=== PATIENT | female | born 1935 | race Caucasian/White ===

== ENCOUNTER → 2023-11-14 09:03 | Outpatient (REF) | payer MEDICARE, SELFPAY | LOC: HWRCS 09:03 | PROVIDERS: ATTENDING PHYSICIAN Family Medicine | DX: R01.1 Cardiac murmur, unspecified (principal); M79.89 Other specified soft tissue disorders | CPT/HCPCS: 93306 ==

== ENCOUNTER 2023-12-16 01:33 | Emergency (ER) | payer MEDICARE, SELFPAY ==
[2023-12-16] VITALS (8 sets, daily range): BP systolic 164–242; BP diastolic 75–140; BMI 24.3
[2023-12-16 02:06] LABS: % Basophils 0.5 % (0-2); % Eosinophils 1.6 % (0-6); % Immature Granulocytes 0.5 % (0-0.5); % Monocytes 7.7 % (1.7-9.3); % Neutrophils 72.7 % (42.2-75.2); Absolute Eosinophils 0.1 10^3/uL (0-0.7); Absolute Lymphocytes 1.3 10^3/uL (1.2-3.4); Absolute Monocytes 0.6 10^3/uL (0.1-0.6); Absolute Neutrophils 5.6 10^3/uL (1.4-6.5); Hematocrit 33.4 % (37.0-47.0); Hemoglobin 11.7 g/dL (12.0-16.0); Mean Corpuscular Hgb 30.3 pg (27.0-31.0); Mean Corpuscular Volume 86.5 fL (81.0-99.0); Mean Platelet Volume 9.6 fL (7.4-10.4); Nucleated Red Blood Cells % 0 %; Platelet Count 251 10^3/uL (130-400); Red Blood Cell Count 3.86 10^6/uL (4.20-5.40); Red Cell Dist. Width 14.3 % (11.5-14.5); White Blood Cell Count 7.7 10^3/uL (4.8-10.8)
[2023-12-16 02:24] LABS: ALT (SGPT) 26 U/L (0-35); AST (SGOT) 29 U/L (14-36); Alkaline Phosphatase 99 U/L (38-126); Blood Urea Nitrogen 20 mg/dl (7-17); Calcium 9.6 mg/dl (8.4-10.2); Carbon Dioxide 24 mmol/L (22-30); Chloride 96 mmol/L (98-107); Glucose 139 mg/dl (70-99); Potassium 4.1 mmol/L (3.5-5.1); Sodium 129 mmol/L (135-145); Total Bilirubin 0.5 mg/dl (0.2-1.3); eGFR > 60.00
--- NOTE | 2023-12-16 06:27 | ED.GENMED ---
History of Present Illness
General
Chief Complaint: Blood Pressure Problem
Time Seen by Provider: 12/16/23 06:24
Travel History
Have you had any contact with someone who has COVID-19?: No
Do you have any symptoms of coronavirus? Fever > 100 degrees, chills, cough, shortness of breath, sore throat, loss of taste or smell, muscle aches, or headache?: No
History of Present Illness
History of Present Illness:
HPI: Over the last several days the patient been dizzy. The dizziness has improved. She did fall a few days ago. She never had chest pain. She states she recently was a Dr. Culp's office and made some adjustments to her medication regarding
lower extremity edema which is improved. Blood pressure at home was very high and she came in here for further evaluation. She currently takes olmesartan 40 mg daily and amlodipine 10 mg daily�each 11 AM.
EXAM:
GENERAL: Well appearing in no distress, she is hypertensive
HEENT: Moist oral mucosa
CARDIOVASCULAR: No murmurs, normal heart rate, regular rhythm, No chest wall tenderness
PULMONARY: No respiratory distress, breath sounds are clear and equal
ABDOMEN: Soft with no peritoneal signs, no tenderness
NEUROLOGIC: Excellent strength all extremities, no coordination deficits, normal finger-nose bilaterally
PSYCHIATRIC: Appropriate mental status, fair insight and judgement, there does appear to be some mild cognitive deficits as she gets somewhat confused with following some commands
EXTREMITIES: Nontender, no edema, moves all extremities equally
SKIN: No rash, no lesions
TIME OF INITIAL ENCOUNTER: 6:30 AM
NUMBER AND COMPLEXITY OF PROBLEMS ADDRESSED AT THE ENCOUNTER
� Chronic conditions affecting care: High blood pressure
� Acute Exacerbation and/or Progression of Chronic Illness: This is an acute exacerbation of chronic problem
� Differential Diagnosis includes: Hypertensive urgency, lab abnormality, BPPV, CVA less likely
AMOUNT AND/OR COMPLEXITY OF DATA TO BE REVIEWED AND ANALYZED
� I performed an independent evaluation of and my interpretation is:
EKG: Sinus 88, normal axis, no acute ST abnormality, poor R wave progression, with no old EKG to compare
CT: CT brain shows no acute abnormality
X-rays:
Laboratory Studies: CBC relatively unremarkable with hemoglobin slightly low 11.7, sodium slightly low at 129, otherwise chemistries unremarkable including normal renal function
Other:
� Review of other/old records: I reviewed echo from 1 month ago that showed EF of 55 to 60%
� Clinical information was obtained by an independent historian: I spoke to the son at bedside
� Prescriptions/Medications Considered but not given:
� Further testing considered but not performed:
RISK OF COMPLICATIONS AND/OR MORBIDITY OR MORTALITY OF PATIENT MANAGEMENT
� Social determinants of health affecting care: Lives at home
� Discussion with other providers:
� Escalation of care including admission/observation vs risk of discharge considered: The patient's blood pressure upon arrival at about 1:30 AM was 240s/140s. Currently it is 218/77. Her earlier dizziness has improved. Will
give a dose of hydralazine. After hydralazine was given by IV, the patient's blood pressure was down to 160s. I have also ordered her normal morning blood pressure medication. She appears eager to go home. She does have some intermittent
dizziness and nausea�Zofran was given. I offered to keep patient in the hospital however the patient still preferred to go home.
Phy Exam
Physical Exam
Physical Exam:
See HPI
Course
Orders/Labs/Results
Orders:
Orders
12/16/23 01:42
Electrocardiogram (*1) Urgent
Reason for Study: Hypertension, Benign
EKG- Treatment ONCE
12/16/23 01:56
CMP [Comprehensive Metabolic Panel] Urgent
Complete Blood Count/With Diff Urgent
12/16/23 06:47
HydrALAZINE [Apresoline] 10 mg IV NOW STA
12/16/23 06:50
CT Head W/o Iv Contrast Urgent
Comment:
Reason For Exam: dizziness severe HTN
12/16/23 07:48
Amlodipine [Norvasc] 10 mg PO NOW STA
12/16/23 08:09
Ondansetron Injectable [Zofran] 4 mg IV NOW STA
12/16/23 08:29
Olmesartan Medoxomil [Benicar] 40 mg PO NOW STA
Abnormal Lab Results
12/16/23
01:56
RBC 3.86 L 10^6/uL
(4.20-5.40)
Hgb 11.7 L g/dL
(12.0-16.0)
Hct 33.4 L %
(37.0-47.0)
Lymphocytes % 17.0 L %
(20.5-51.1)
Sodium 129 L mmol/L
(135-145)
Chloride 96 L mmol/L
(98-107)
BUN 20 H mg/dl
(7-17)
Glucose 139 H mg/dl
(70-99)
12/16/23 01:56
12/16/23 01:56
Vital Signs
Blood pressure: 167/80
Initial and Last Documented VS:
Initial Vital Signs
Temp Pulse Resp BP Pulse Ox
97.8 F 110 24 242/140 98
12/16/23 01:36 12/16/23 01:36 12/16/23 01:36 12/16/23 01:36 12/16/23 01:36
Last Documented Vital Signs
Temp Pulse Resp BP Pulse Ox
97.8 F 69 13 173/83 98
12/16/23 01:36 12/16/23 08:45 12/16/23 08:45 12/16/23 08:40 12/16/23 07:00
*Critical Care Note
Total Time (30-74mins, 75-104mins- exclusive of procedures): Not Applicable
ED Attending Note
-
Portions of this chart may have been created with voice recognition software.� Occasional wrong word or��sound alike� substitutions may have occurred due to the inherent limitations of voice recognition software.
Discharge Plan
Departure
Patient Disposition: Home (Routine Discharge)
Date of Disposition: 12/16/23
Time of Disposition: 08:30
Patient with high blood pressure during this ER visit?: Yes
Discharge Problem:
Dizziness
Instructions: Dizziness, BLOOD PRESSURE
Prescriptions:
New
ondansetron HCl 4 mg tablet
4 mg PO Q8H PRN (Reason: nausea and vomiting) Qty: 10 0RF
hydralazine 10 mg tablet
10 mg PO TID Qty: 90 0RF
Referrals:
Jacek Culp, DO [Family Provider] -
Activity Restrictions/Additional Instructions:
Since you already compliant with taking your olmesartan 40 mg daily and amlodipine 10 mg daily, and your blood pressure was as high as 242/140 here, we gave a dose of IV hydralazine which improved blood pressure down to 167/80. I have given you
prescription for oral hydralazine�this is a low-dose. I do recommend that you continue to take your blood pressure readings. If your blood pressures are below 140 for the top number, I recommend to not take the hydralazine. Follow-up with
Suni. I also sent a prescription to your pharmacy for nausea medicine. Return here if worse.
Interventions
Interventions:
*Risk Screen - Suicide Last Done: 12/16/23 01:36
*Neglect/Abuse Screening Last Done: 12/16/23 01:36
ED- Fall Risk Assessment Last Done: 12/16/23 07:46
ED- Cardiac Assessment Last Done: 12/16/23 07:46
ED- Neurological Assessment Last Done: 12/16/23 07:46
ED- Pulmonary Assessment Last Done: 12/16/23 07:46
Discharge Date and Time
Print Language: WOLOF
[2023-12-16] MEDS: APRESOLINE 10 MG IV (07:45)
[2023-12-16] MEDS: ZOFRAN 4 MG IV (08:20)
[2023-12-16] MEDS: BENICAR 40 MG PO (08:50)
[2023-12-16] MEDS: NORVASC 10 MG PO (08:55)
== END 2023-12-16 09:50 | disposition home or self-care (01) ==
LOC: EMR 01:33
PROVIDERS: Emergency Medicine; EMERGENCY PHYSICIAN Emergency Medicine; FAMILY PHYSICIAN Family Medicine
DX: R42 Dizziness and giddiness (principal); R60.0 Localized edema; W19.XXXA Unspecified fall, initial encounter; Z79.899 Other long term (current) drug therapy
CPT/HCPCS: 99284; 96374; 96375; 70450; 80053; 85025; 93005

== ENCOUNTER → 2023-12-25 15:12 | Outpatient (REF) | payer MEDICARE, SELFPAY | LOC: MRI 3T 15:12 | PROVIDERS: ATTENDING PHYSICIAN Family Medicine | DX: R42 Dizziness and giddiness (principal); R41.3 Other amnesia | CPT/HCPCS: 70551 ==

== ENCOUNTER → 2024-01-20 07:47 | Outpatient (REF) | payer MEDICARE, SELFPAY ==
--- NOTE | 2024-01-20 10:01 | EEG.RPT ---
Electroencephalogram Report
Recording
Date of EE01/20/24
Type of EEG: Routine
Length of EEG recordin minutes
Done with Video Recording: Yes
Patient Status: Outpatient
Recording Conditions: Awake and Drowsy
Hyperventilation Performed: No
Photic Stimulation Performed: Yes
Report
LESS THAN 1 HOUR EEG REPORT
LESS THAN 1 HOUR EEG INTERPRETATION:
Likely unremarkable EEG for age
CLINICAL CORRELATION:
Although normative values not been established for a person of this advanced age, the patient�s symmetry of the background suggests that this study was unremarkable.
A normal EEG does not rule out a diagnosis of epilepsy. If clinical suspicion for seizure persists, a prolonged recording may be warranted.
Clinical correlation is advised.
METHODS:
A 21 channel digitized electroencephalogram (EEG) was performed using the 10/20 international system of electrode placement and one-lead of ECG recorded. The opinions.h quantitative analysis system was utilized.
ELECTROENCEPHALOGRAPHER IMPRESSION(S):
Quality of study
Good
Background
There was an unremarkable anterior-posterior voltage gradient of alpha frequency.
With eye opening the background activity changed to a low voltage mixture of frequencies.
There were no significant asymmetries of background activity noted.
Sleep
Drowsiness present
Photic Stimulation
No driving
ECG
Normal sinus rhythm
[2024-01-20 10:17] LABS: Urine Albumin Trace (Neg - Trace); Urine Bilirubin Negative (Negative); Urine Character Clear (Clear); Urine Color Yellow; Urine Glucose Negative (Negative); Urine Ketone Negative (Negative); Urine Leukocyte Negative (Negative); Urine Nitrite Negative (Negative); Urine Occult Blood Negative (Negative); Urine Specific Gravity 1.005 (<1.030); Urine Urobilinogen Negative (Neg - 1+)
[2024-01-20 10:25] LABS: Ammonia < 9 umol/L (9-30)
[2024-01-20 10:26] LABS: Erythrocyte Sed Rate 20 mm/hour (0-20)
[2024-01-20 11:06] LABS: CRP, Highly Sensitive < 0.34 mg/L
[2024-01-20 11:17] LABS: Vitamin D, 25-OH*** 24.7 ng/mL (30-80)
[2024-01-20 11:30] LABS: TSH 3.02 uIU/ml (0.47-4.68)
[2024-01-20 12:13] LABS: Vitamin B12 321 pg/ml (239-931)
== END ==
LOC: EEG 07:47
PROVIDERS: ATTENDING PHYSICIAN Psychiatry & Neurology Neurology; FAMILY PHYSICIAN Family Medicine
DX: R41.82 Altered mental status, unspecified (principal); I10 Essential (primary) hypertension
CPT/HCPCS: 36415; 81003; 82140; 82306; 82607; 82652; 82746; 84425; 84443; 85652; 86141; 86618; 95819

== ENCOUNTER 2024-07-26 13:40 | Emergency (ER) | payer MEDICARE, SELFPAY ==
[2024-07-26] VITALS (8 sets, daily range): BP systolic 176–218; BP diastolic 74–103; BMI 22.9
[2024-07-26 14:04] LABS: % Basophils 0.9 % (0-2); % Eosinophils 0.9 % (0-6); % Immature Granulocytes 0.2 % (0-0.5); % Lymphocytes 26.5 % (20.5-51.1); % Monocytes 8.2 % (1.7-9.3); % Neutrophils 63.3 % (42.2-75.2); Absolute Lymphocytes 1.2 10^3/uL (1.2-3.4); Absolute Monocytes 0.4 10^3/uL (0.1-0.6); Hematocrit 41.7 % (37.0-47.0); Hemoglobin 13.7 g/dL (12.0-16.0); Mean Corp Hgb Conc. 32.9 g/dL (33.0-37.0); Mean Corpuscular Hgb 30.1 pg (27.0-31.0); Mean Corpuscular Volume 91.6 fL (81.0-99.0); Nucleated Red Blood Cells % 0 %; Platelet Count 203 10^3/uL (130-400); Red Blood Cell Count 4.55 10^6/uL (4.20-5.40); Red Cell Dist. Width 13.3 % (11.5-14.5); White Blood Cell Count 4.7 10^3/uL (4.8-10.8)
[2024-07-26 14:16] LABS: ALT (SGPT) 18 U/L (0-35); AST (SGOT) 27 U/L (14-36); Albumin 5.2 g/dl (3.5-5.0); Alkaline Phosphatase 84 U/L (38-126); Blood Urea Nitrogen 30 mg/dl (7-17); Carbon Dioxide 26 mmol/L (22-30); Chloride 100 mmol/L (98-107); Estimated Creatinine Clearance 46 ml/min; Glucose 110 mg/dl (70-99); Potassium 4.4 mmol/L (3.5-5.1); Sodium 141 mmol/L (135-145); Total Bilirubin 0.7 mg/dl (0.2-1.3); Total Protein 8.4 g/dl (6.3-8.2); eGFR > 60.00
[2024-07-26 14:28] LABS: Troponin I < 0.012 ng/ml
--- NOTE | 2024-07-26 16:46 | ED.GENMED ---
History of Present Illness
General
Chief Complaint: Dizziness
Time Seen by Provider: 07/26/24 15:41
History of Present Illness
History of Present Illness:
89-year-old female with history of dementia and hypertension presenting to the emergency department for dizziness. Patient reports that she felt dizzy this morning, however reports that she is unsure how she got here. Patient arrived by medics.
Patient reports that she is generally feeling unwell. She did not eat or drink today, did not take her medications. Dizziness is not worsened with any fast head movement. Denies fever, cough, pain, difficulty breathing. Denies associated
weakness or numbness to her extremities. Denies any abdominal pain. Denies visual changes or headache. Denies additional acute medical complaints
Phy Exam
Physical Exam
Physical Exam:
General: Well-appearing, no clinical signs of dehydration, nontoxic and in no acute distress
HEENT: protecting airway, pupils equal and reactive, extraocular movements intact
Neck: appears supple
CV: Normal heart rate, regular rhythm, no evidence of cyanosis
Resp: No accessory muscle use, no increased work of breathing, lungs clear to auscultation bilaterally
Abd: Soft and non-distended, no tenderness to palpation
Extremities: No deformities, no swelling, no erythema
Neuro: alert, no focal neurologic deficit
: deferred
Rectal: deferred
Psych: Normal affect
Skin: Intact
Course
Orders/Labs/Results
Orders:
Orders
07/26/24 13:46
Electrocardiogram (*1) Urgent
Reason for Study: Hypertension, Benign
EKG- Treatment ONCE
07/26/24 13:55
CMP [Comprehensive Metabolic Panel] Urgent
Complete Blood Count/With Diff Urgent
Troponin I Urgent
07/26/24 15:56
CT Head W/o Iv Contrast Urgent
Comment:
Reason For Exam: dizziness, HTN
0.9% Sodium Chloride 1000 ml [Nss] 1,000 ml IV BOLUS
Labetalol HCl [Trandate] 20 mg IV NOW STA
Meclizine [Antivert] 25 mg PO NOW STA
Abnormal Lab Results
07/26/24
13:55
WBC 4.7 L 10^3/uL
(4.8-10.8)
MCHC 32.9 L g/dL
(33.0-37.0)
BUN 30 H mg/dl
(7-17)
Glucose 110 H mg/dl
(70-99)
Total Protein 8.4 H g/dl
(6.3-8.2)
Albumin 5.2 H g/dl
(3.5-5.0)
07/26/24 13:55
07/26/24 13:55
Vital Signs
Initial and Last Documented VS:
Initial Vital Signs
Temp Pulse Resp BP Pulse Ox
99.1 F 88 18 215/90 96
07/26/24 13:47 07/26/24 13:47 07/26/24 13:47 07/26/24 13:47 07/26/24 13:47
Last Documented Vital Signs
Temp Pulse Resp BP Pulse Ox
99.1 F 69 10 186/75 96
07/26/24 13:47 07/26/24 18:31 07/26/24 18:31 07/26/24 18:31 07/26/24 18:30
MDM/Problems Addressed
MDM/Problems Addressed:
89-year-old female with history of dementia and hypertension presenting to the emergency department for dizziness. Vital signs and arrival significant for hypertension.
On exam, patient is resting comfortably, no acute distress or discomfort. Benign cardiac, pulmonary, neurologic exam. No focal neurologic deficits. Patient is confused about how she got to this hospital, unclear if this is her baseline. She has
markedly hypertensive, possible hypertensive urgency versus emergency, however patient notes that her blood pressure is typically elevated. Possible vertiginous component as etiology of symptoms. Possible dehydration component, has not eaten or
drink anything today. EKG obtained, no arrhythmia, no acute ischemia. Plan for screening laboratory analysis and CT brain in the setting of uncontrolled hypertension and dizziness. Will also try administering meclizine and IV fluids and reassess
for improvement.
16:40 - Patient's son arrived bedside, who notes that this confusion is patient's baseline. He notes that she appears to be acting herself. Her blood pressure is very usually very elevated, she frequently misses her medications. He is trying to
get her home health care. However, patient has been very resistant to help, and expresses that she does not want to stay in the facility.
19:10 -CT brain without acute abnormality. There is mention of enlarged ventricles, possible NPH. In discussion with son, notes that they have entertained undiagnosed past. Blood pressure remains slightly elevated, however this time feel stable
for discharge, patient reports she is feeling better. Encouraged her to to be compliant with her medications. Son notes that he has convinced her to get home health nursing. He will escort her home. Strict return precautions communicated to
patient verbalized understanding
*EKG
Interpreted by ED Provider?: Yes
EKG Intrepretation Date: 07/26/24
EKG Intrepretation Time: 16:49
Interpretation: normal
Comparison EKG: no changes (12/16/23)
Heart Rate: 86
Rate: normal
Rhythm: sinus
Interval: normal interval
QRS Pattern: normal QRS
Ischemia: no ischemia
*Critical Care Note
Total Time (30-74mins, 75-104mins- exclusive of procedures): Not Applicable
ED Attending Note
-
Portions of this chart may have been created with voice recognition software.� Occasional wrong word or��sound alike� substitutions may have occurred due to the inherent limitations of voice recognition software.
Discharge Plan
Departure
Prescriptions:
No Action
ondansetron HCl 4 mg tablet
4 mg PO Q8H PRN (Reason: nausea and vomiting) Qty: 10 0RF
hydralazine 10 mg tablet
10 mg PO TID Qty: 90 0RF
Referrals:
Jacek Culp DO [Family Provider] -
Interventions
Interventions:
*Risk Screen - Suicide Last Done: 07/26/24 13:47
*General Assessment Last Done: 07/26/24 13:47
*Neglect/Abuse Screening Last Done: 07/26/24 13:47
ED- Fall Risk Assessment Last Done: 07/26/24 13:47
*ED COVID-19 Vaccine History Last Done: 07/26/24 13:47
ED- Neurological Assessment Last Done: 07/26/24 13:47
ED Swallowing Screen Last Done: 07/26/24 15:00
Discharge Date and Time
Print Language: LITHUANIAN
[2024-07-26] MEDS: ANTIVERT 25 MG PO (17:14)
[2024-07-26] MEDS: TRANDATE 20 MG IV (17:14)
[2024-07-26] MEDS: NSS 1000 IV (17:14)
== END 2024-07-26 19:42 | disposition home or self-care (01) ==
LOC: EMR 13:40
PROVIDERS: Emergency Medicine; EMERGENCY PHYSICIAN Student in an Organized Health Care Education/Training Program; FAMILY PHYSICIAN Family Medicine
DX: R42 Dizziness and giddiness (principal); I10 Essential (primary) hypertension; F03.90 Unspecified dementia, unspecified severity, without behavioral disturbance, psychotic disturbance, mood disturbance, and anxiety
CPT/HCPCS: 99285; 96374; 96361; 70450; 80053; 84484; 85025; 93005

== ENCOUNTER 2024-08-18 18:45 | Inpatient (IN) | payer MEDICARE, SELFPAY ==
[2024-08-18] VITALS (12 sets, daily range): BP systolic 105–173; BP diastolic 58–82; PULSE 73–95; BMI 22.8; BMI 22.0
--- NOTE | 2024-08-18 15:27 | ED.GENMED ---
History of Present Illness
<Marylou Bonilla PA-C - Last Filed: 08/18/24 19:01>
General
Chief Complaint: Blood Pressure Problem
Source: patient
Exam Limitations: none
Time Seen by Provider: 08/18/24 15:26
Nursing documentation reviewed up to this point in time: agreed with
History of Present Illness
History of Present Illness:
89-year-old female with past medical history of hypertension, dizziness, orthostatic hypotension presents to the emergency department today with concerns of an episode of hypotension at home. She was sent in by her primary care provider and her
home nurse who reports that her pressure at home was 68/40. She had dizziness at this time. She has a history of orthostatic hypotension and dizziness with standing and ambulation. Primary care office also concerned because she has had 20 pound
weight loss over the past few weeks and has not been eating and had decreased appetite. Patient offers no complaints at this time, she has no abdominal pain, no shortness of breath, no chest pain, no nausea, no vomiting.
Review of Systems
<Marylou Bonilla PA-C - Last Filed: 08/18/24 19:01>
Review of Systems
All Other Systems: ROS reviewed and negative except as documented in HPI and ROS
Phy Exam
<Marylou Bonilla PA-C - Last Filed: 08/18/24 19:01>
Physical Exam
Physical Exam:
General: Patient is well appearing and in no acute distress; non-toxic
Skin: Warm and dry, no rashes or lesions
Head: Normocephalic, atraumatic
Eyes: Sclera non-icteric. EOMs intact. PERRLA.
Cardiac: Regular rate and rhythm, no murmurs. Positive orthostatic vital signs
Peripheral Vascular: No lower extremity swelling or edema
Pulm: Normal respiratory effort, no wheezes, rales, rhonchi
Abdomen: No abdominal tenderness to palpation
Neuro: CN II-XII intact, no focal neurologic deficits.
Psychiatric: Appropriate mood and affect.
Course
<Marylou Bonilla PA-C - Last Filed: 08/18/24 19:01>
Orders/Labs/Results
Orders:
Orders
08/18/24 15:28
Electrocardiogram (*1) Urgent
Reason for Study: Vertigo / Dizzy
EKG- Treatment ONCE
08/18/24 15:29
Complete Blood Count/With Diff Urgent
Comprehensive Metabolic Panel Urgent
08/18/24 15:36
0.9% Sodium Chloride 500 ml [Nss] 500 ml IV BOLUS
08/18/24 18:00
Admit/Transfer Patient As Directed
Co-Sign Provider:
Level of Care: Inpatient admission
Assign to:: Telemetry
Physician / Group: Alex Rodriguez
Diagnosis: NUNU, AFTT
Reason for Telemetry: Arrhythmia
Date to Stop Telemetry: 08/21/24
Time to Stop Telemetry: 11:00
Reason for Hospitalization: NUNU, AFTT
Expected length of stay greater than two midnights?: Yes
ELOS- Estimated Length of Stay in days: 3
I certify the patient meets the requirements for IP care: Yes
08/18/24 18:01
PRN Pain Medication Management As Directed
May give lesser potent ordered pain med per pt: Yes
preference::
Protocol:: Medication orders for pain may be administered in a
manner that supports deferring to patient preference
when the pt is:
- Requesting an ordered lesser potent pain medication.
Least to most potent pain medications are defined
as: acetaminophen < NSAID < tramadol < opioids
(morphine, oxycodone, hydromorphone).
- Requesting a lesser dose of the same medication IF
ORDERED.
- Requesting a less intrusive route of administration
if both routes are prescribed by the provider (PO <
IV).
08/18/24 18:04
Code Status As Directed
Resuscitation Status: Full Code
08/21/24 11:00
DC Protocol for Telemetry ONCE
Abnormal Lab Results
08/18/24
15:29
MPV 10.9 H fL
(7.4-10.4)
Abs Immat Gran (auto) 0.1 H 10^3/uL
(0-0.05)
Immature Gran % 1.1 H %
(0-0.5)
Monocytes % 9.9 H %
(1.7-9.3)
Sodium 134 L mmol/L
(135-145)
BUN 58 H mg/dl
(7-17)
Creatinine 2.5 H mg/dL
(0.6-1.0)
Glucose 136 H mg/dl
(70-99)
AST 47 H U/L
(14-36)
08/18/24 15:29
08/18/24 15:29
Vital Signs
Initial and Last Documented VS:
Initial Vital Signs
BP
156/68
08/18/24 15:09
Last Documented Vital Signs
Temp Pulse Resp BP Pulse Ox
98.7 F 67 12 163/71 98
08/18/24 15:12 08/18/24 18:20 08/18/24 16:45 08/18/24 18:42 08/18/24 16:00
Kacylt;Uzair Manuel, - Last Filed: 08/18/24 16:39>
Orders/Labs/Results
Orders:
Orders
08/18/24 15:28
Electrocardiogram (*1) Urgent
Reason for Study: Vertigo / Dizzy
EKG- Treatment ONCE
08/18/24 15:29
Complete Blood Count/With Diff Urgent
Comprehensive Metabolic Panel Urgent
08/18/24 15:36
0.9% Sodium Chloride 500 ml [Nss] 500 ml IV BOLUS
08/18/24 18:00
Admit/Transfer Patient As Directed
Co-Sign Provider:
Level of Care: Inpatient admission
Assign to:: Telemetry
Physician / Group: Alex Rodriguez
Diagnosis: NUNU, AFTT
Reason for Telemetry: Arrhythmia
Date to Stop Telemetry: 08/21/24
Time to Stop Telemetry: 11:00
Reason for Hospitalization: NUNU, AFTT
Expected length of stay greater than two midnights?: Yes
ELOS- Estimated Length of Stay in days: 3
I certify the patient meets the requirements for IP care: Yes
08/18/24 18:01
PRN Pain Medication Management As Directed
May give lesser potent ordered pain med per pt: Yes
preference::
Protocol:: Medication orders for pain may be administered in a
manner that supports deferring to patient preference
when the pt is:
- Requesting an ordered lesser potent pain medication.
Least to most potent pain medications are defined
as: acetaminophen < NSAID < tramadol < opioids
(morphine, oxycodone, hydromorphone).
- Requesting a lesser dose of the same medication IF
ORDERED.
- Requesting a less intrusive route of administration
if both routes are prescribed by the provider (PO <
IV).
08/18/24 18:04
Code Status As Directed
Resuscitation Status: Full Code
08/21/24 11:00
DC Protocol for Telemetry ONCE
Abnormal Lab Results
08/18/24
15:29
MPV 10.9 H fL
(7.4-10.4)
Abs Immat Gran (auto) 0.1 H 10^3/uL
(0-0.05)
Immature Gran % 1.1 H %
(0-0.5)
Monocytes % 9.9 H %
(1.7-9.3)
Sodium 134 L mmol/L
(135-145)
BUN 58 H mg/dl
(7-17)
Creatinine 2.5 H mg/dL
(0.6-1.0)
Glucose 136 H mg/dl
(70-99)
AST 47 H U/L
(14-36)
08/18/24 15:29
08/18/24 15:29
Vital Signs
Initial and Last Documented VS:
Initial Vital Signs
BP
156/68
08/18/24 15:09
Last Documented Vital Signs
Temp Pulse Resp BP Pulse Ox
98.7 F 67 12 163/71 98
08/18/24 15:12 08/18/24 18:20 08/18/24 16:45 08/18/24 18:42 08/18/24 16:00
Kacylt;Marylou Bonilla PA-C - Last Filed: 08/18/24 19:01>
MDM/Problems Addressed
Differential Diagnosis Includes:
See below
MDM/Problems Addressed:
NUMBER AND COMPLEXITY OF PROBLEMS ADDRESSED AT THE ENCOUNTER
� Chronic conditions affecting care: Hypertension
� Acute Exacerbation and/or Progression of Chronic Illness:
� Differential Diagnosis includes: Differentials include acute kidney injury, orthostatic attention, dehydration, generalized failure to thrive, alternatives dementia, malignancy
AMOUNT AND/OR COMPLEXITY OF DATA TO BE REVIEWED AND ANALYZED
� I performed an independent evaluation of and my interpretation is:
EKG: EKG demonstrates normal sinus rhythm with no ischemic changes
Laboratory Studies:
Other:
� Review of other/old records: Reviewed ER physician documentation for 07/26/2024, no discharge summary to review
� Clinical information was obtained by an independent historian:
� Prescriptions/Medications Considered but not given:
� Further testing considered but not performed: none
RISK OF COMPLICATIONS AND/OR MORBIDITY OR MORTALITY OF PATIENT MANAGEMENT
� Social determinants of health affecting care:
� Discussion with other providers: ER attending
� Escalation of care including admission/observation vs risk of discharge considered:
89-year-old female presents emergency department today with concerns of dizziness, dehydration, recent weight loss,, decreased appetite. Her pressure systolically at home was 68 and was in the 80 systolically with EMS. Her lab work demonstrates an
increase in her baseline creatinine tripled from her baseline. Will admit to hospital for NUNU and further workup of her appetite. Patient is given 500 of fluids emergency department. Patient referred for admission
<Marylou Bonilla PA-C - Last Filed: 08/18/24 19:01>
*Critical Care Note
Total Time (30-74mins, 75-104mins- exclusive of procedures): Not Applicable
ED Attending Note
<Marylou Bonilla PA-C - Last Filed: 08/18/24 19:01>
-
Portions of this chart may have been created with voice recognition software.� Occasional wrong word or��sound alike� substitutions may have occurred due to the inherent limitations of voice recognition software.
<Uzair Manuel DO - Last Filed: 08/18/24 16:39>
ED Attending Note
Patient seen and examined by attending physician: Yes
I performed the substantive portion of visit, reviewed & personally made and approve the management plan that is documented in note by myself or CHAYITO.: Yes
ED Attending Note:
I evaluated patient at bedside. The patient has evidence of dementia. Was hypotensive earlier into the 70s and 80s. NUNU noted.
Discharge Plan
Departure
Patient Disposition: Admit
Date of Disposition: 08/18/24
Time of Disposition: 17:18
Admit to: Med/Surg
Presentation/result/management discussed w/ accepting MD/DO: Hospitalist
Condition: Fair
Discharge Problem:
Acute kidney injury, Failure to thrive
Interventions
Interventions:
*Risk Screen - Suicide Last Done: 08/18/24 15:12
*General Assessment Last Done: 08/18/24 15:12
*Neglect/Abuse Screening Last Done: 08/18/24 15:12
ED- Fall Risk Assessment Last Done: 08/18/24 19:00
*ED COVID-19 Vaccine History Last Done: 08/18/24 15:24
*Nursing Disposition Last Done: 08/18/24 19:00
ED- Cardiac Assessment Last Done: 08/18/24 16:00
ED- Neurological Assessment Last Done: 08/18/24 16:00
ED- Pulmonary Assessment Last Done: 08/18/24 16:00
[2024-08-18] MEDS: NSS 500 IV (15:49)
[2024-08-18 15:51] LABS: % Basophils 0.9 % (0-2); % Eosinophils 1.6 % (0-6); % Immature Granulocytes 1.1 % (0-0.5); % Lymphocytes 22.2 % (20.5-51.1); % Monocytes 9.9 % (1.7-9.3); % Neutrophils 64.3 % (42.2-75.2); Absolute Basophils 0.1 10^3/uL (0-0.2); Absolute Eosinophils 0.1 10^3/uL (0-0.7); Absolute Immature Granulocytes 0.1 10^3/uL (0-0.05); Absolute Lymphocytes 1.2 10^3/uL (1.2-3.4); Absolute Monocytes 0.6 10^3/uL (0.1-0.6); Absolute Neutrophils 3.6 10^3/uL (1.4-6.5); Hematocrit 38.9 % (37.0-47.0); Mean Corp Hgb Conc. 33.4 g/dL (33.0-37.0); Mean Corpuscular Hgb 29.9 pg (27.0-31.0); Mean Corpuscular Volume 89.4 fL (81.0-99.0); Mean Platelet Volume 10.9 fL (7.4-10.4); Nucleated Red Blood Cells % 0 %; Platelet Count 197 10^3/uL (130-400); Red Blood Cell Count 4.35 10^6/uL (4.20-5.40); Red Cell Dist. Width 13.4 % (11.5-14.5); White Blood Cell Count 5.5 10^3/uL (4.8-10.8)
[2024-08-18 16:07] LABS: ALT (SGPT) 31 U/L (0-35); AST (SGOT) 47 U/L (14-36); Albumin 4.7 g/dl (3.5-5.0); Alkaline Phosphatase 63 U/L (38-126); Blood Urea Nitrogen 58 mg/dl (7-17); Calcium 9.3 mg/dl (8.4-10.2); Carbon Dioxide 22 mmol/L (22-30); Chloride 99 mmol/L (98-107); Estimated Creatinine Clearance 15 ml/min; Glucose 136 mg/dl (70-99); Potassium 4.9 mmol/L (3.5-5.1); Sodium 134 mmol/L (135-145); Total Bilirubin 0.2 mg/dl (0.2-1.3); Total Protein 7.5 g/dl (6.3-8.2); eGFR 18.16
--- NOTE | 2024-08-18 17:22 | HPS.HSE ---
Family Physician
-
Family Physician: Jacek Culp
Chief Complaint
-
hypotension
History of Present Illness
Patient is a 89-year-old female with past medical history significant for hypertension, hyperlipidemia, hypothyroidism, atherosclerosis of carotid arteries, Alzheimer's disease, depression and anxiety who presented to [facility] ED for evaluation of
a period of orthostatic hypotension with SBP to 60s as reported in ED note from the home nurse with [facility]. Patient had periods of dizziness and orthostatic VS taken by visiting nurse when SBP 60 obtained with ambulation. It is also documented in ED
note that patients primary reported that she had a recent 20 pound weight loss with decreased appetite in recent history.
Medical History
Past Medical History
Past Medical History: Reports Other
Additional Past Medical History:
hypertension
hyperlipidemia
hypothyroidism
atherosclerosis of carotid arteries
cerebrovascular small vessel disease
Alzheimer's disease
dementia
depression
anxiety
overactive bladder
pulmonary hypertension
mitral valve stenosis
moderate tricuspid regurgitation
Past Surgical History: Reports Other
Additional Past Surgical History:
cataract-lens implants
tonsillectomy
hysterectomy
sinus/orbit suregery
Social History
Unable to obtain full social history at this time due to: Dementia
Family History
Family History: Unable to Obtain
Allergies / Home Medications
Allergies reflects when Allergies were last updated in [facility].
Home Medications with original date entered in [employer]
Allergy/Medication List:
Allergies
Allergy/AdvReac Type Severity Reaction Status Date / Time
No Known Allergies Allergy Verified 08/18/24 15:12
Home Medications
aspirin 81 mg chewable tablet 81 mg PO DAILY 08/18/24
cholecalciferol (vitamin D3) 25 mcg (1,000 unit) tablet (Vitamin D3) 25 mcg PO DAILY 08/18/24
donepezil 10 mg tablet 10 mg PO HS 08/18/24
furosemide 20 mg tablet 20 mg PO DAILY 08/18/24
hydralazine 10 mg tablet 10 mg PO TIDPRN PRN BP 08/18/24
lactulose 10 gram/15 mL oral solution 20 g PO DAILYPRN PRN constipation 08/18/24
levothyroxine 50 mcg tablet 50 mcg PO DAILY 08/18/24
lutein 6 mg capsule 6 mg PO DAILY 08/18/24
memantine 28 mg capsule sprinkle,extended release 24hr 28 mg PO DAILY 08/18/24
olmesartan 40 mg tablet 40 mg PO DAILY 08/18/24
sertraline 25 mg tablet 25 mg PO DAILY 08/18/24
simvastatin 20 mg tablet 20 mg PO QPM 08/18/24
therapeutic multivitamin 1 tab PO DAILY 08/18/24
vibegron 75 mg tablet (Gemtesa) 75 mg PO DAILY 08/18/24
Review of Systems
-
Unable to obtain full review of systems at this time due to: Dementia
Constitutional: Reports Weight Loss (20 pounds with decreased appetite)
EENT: Reports See HPI
Respiratory: Reports See HPI
Cardiac: Reports See HPI
Abdomen/GI: Reports See HPI
: Reports See HPI
Musculoskeletal: Reports See HPI
Skin: Reports See HPI
Neurological: Reports See HPI
Endocrine: Reports See HPI
Hematologic/Lymphatic: Reports See HPI
Psych: Reports See HPI
Physical Exam
Vital Signs
Vital Signs
Temp Pulse Resp BP Pulse Ox
98.7 F 68 12 141/69 98
08/18/24 15:12 08/18/24 16:45 08/18/24 16:45 08/18/24 16:01 08/18/24 16:00
Physical Exam
General: Well Developed, Well Nourished, No Apparent Distress, Comfortable and Conversant
HEENT: NormoCephalic, Moist mucous membranes, Atraumatic, PERRLA, [place] Conjunctivae, Nose Appears Normal and Ears Appear Normal
Respiratory: Clear and Non Labored Respirations
Cardiac: S1/S2 and Regular Rhythm; No Murmur, Rub or Gallop
Breast: Deferred by me
GI: Soft, Non Tender, Non Distended and Normal Bowel Sounds; No Organomegaly
Rectal: Deferred by Provider
Genito-urinary: Deferred by me
Musculoskeletal: No Clubbing, No Cyanosis and No Edema
Skin: Warm and IV/Catheter Site; No Rash
Neuro: Awake, Alert and Nonfocal/grossly intact
Hematologic/Lymphatic: No Lymphadenopathy
Psych: Calm
Laboratory Results
-
08/18/24 15:29
08/18/24 15:29
Laboratory Results
Total Bilirubin 0.2 mg/dl (0.2-1.3) 08/18/24 15:29
AST 47 U/L (14-36) H 08/18/24 15:29
ALT 31 U/L (0-35) 08/18/24 15:29
Alkaline Phosphatase 63 U/L (38-126) 08/18/24 15:29
Data Reviewed
-
CT Scan: Report Reviewed by me (Head: No acute intracranial abnormality noted. No acute intracranial hemorrhage. Moderate chronic microvascular white matter ischemic disease. Stable moderate to advanced ventriculomegaly slightly out of proportion to
cerebral sulcal prominence. Likely reflecting central greater than cortical atroph)
Medical Tests (Nuc Med, Echo, EKG etc): Report Reviewed by me (EKG: NORMAL SINUS RHYTHM SEPTAL INFARCT (CITED ON OR BEFORE 16-DEC-2023) ABNORMAL ECG)
Lab Data: Labs Reviewed by me (BUN 58, Creat 2.5)
Impression/Plan
-
IMPRESSION/PLAN:
#Acute Kidney Injury
#adult failure to thrive
orthostatic hypotension as reported by visiting nurse SBP 60s
primary provider reports recent 20 pound weight loss and poor appetite
BUN 58, Creat 2.5
- Admit to telemetry
- IVF
- bladder scan/straight cath protocol
- hold nephrotoxic medications
- orthostatic VS
#benign hypertension
- hold furosemide, olmesartan
- continue PRN hydralazine
#hyperlipidemia
#atherosclerosis of carotid arteries
- continue simvastatin
#hypothyroidism
- continue levothyroxine
#cerebrovascular small vessel disease
#Alzheimer's disease
#dementia
- continue aspirin, donepezil, memantine
#depression
#anxiety
- continue sertraline
#overactive bladder
- continue vibegron
#pulmonary hypertension
#mitral valve stenosis
#moderate tricuspid regurgitation
Code Status: Full Code
DVT Prophylaxis: Heparin Sq
--- NOTE | 2024-08-18 17:38 | PHANOTE ---
med rec tech(08/18/24)-Patient did not know her own medications, attempted to call family at 17:30. Checked with ED provider, she was also unable to get in contact. Created home med list through [facility] records and [facility] visit from 07/21/24.
--- NOTE | 2024-08-18 17:55 | W.PN.UPDATE ---
Update Note
Progress Note Update
This is an addendum to the H&P written by Lorna Faye on 08/18/2024. Patient seen and examined independently with [facility].
89-year-old female past medical history of hypertension, dementia, hypothyroidism, anxiety, overactive bladder, hyperlipidemia, presenting from home by home nurse for hypotension. Blood pressures reportedly 60s at home and reportedly had symptoms
of orthostatic hypotension. Patient feels weak with no other complaints at this time though decreased appetite for past few days.
Blood pressure currently elevated up to 170 systolic. Labs show NUNU. Likely patient has prerenal NUNU secondary to poor p.o. intake and nephrotoxic medications including Lasix possibly being given for lower extremity edema. Hold nephrotoxic
medications including Lasix, olmesartan. Continue IV fluids. As needed hydralazine. Bladder scan protocol. Check orthostatic vital signs.
We attempted to call son who did not chicken picker the phone.
[2024-08-18] MEDS: NSS 1000 IV (21:00)
[2024-08-18] MEDS: ARICEPT 10 MG PO (22:38)
[2024-08-18] MEDS: HEPARIN 5000 UNITS SC (23:35)
[2024-08-19 03:55] VITALS: BP 135/66
[2024-08-19 06:00] VITALS: BMI 21.9
[2024-08-19] MEDS: SYNTHROID 50 MCG PO (06:29)
[2024-08-19 07:20] VITALS: BP 147/70
[2024-08-19 08:26] LABS: Hematocrit 35.9 % (37.0-47.0); Hemoglobin 12.2 g/dL (12.0-16.0); Mean Corpuscular Volume 88.4 fL (81.0-99.0); Mean Platelet Volume 11.1 fL (7.4-10.4); Platelet Count 176 10^3/uL (130-400); Red Blood Cell Count 4.06 10^6/uL (4.20-5.40); Red Cell Dist. Width 13.4 % (11.5-14.5); White Blood Cell Count 4.3 10^3/uL (4.8-10.8)
[2024-08-19 08:29] LABS: Blood Urea Nitrogen 41 mg/dl (7-17); Calcium 9.1 mg/dl (8.4-10.2); Carbon Dioxide 22 mmol/L (22-30); Chloride 105 mmol/L (98-107); Estimated Creatinine Clearance 19 ml/min; Glucose 101 mg/dl (70-99); Potassium 4.9 mmol/L (3.5-5.1); Sodium 134 mmol/L (135-145); eGFR 25.24
[2024-08-19] MEDS: ZOLOFT 25 MG PO (08:30)
[2024-08-19] MEDS: NAMENDA 10 MG PO ×2 (08:30→21:37)
[2024-08-19] MEDS: HEPARIN 5000 UNITS SC ×2 (08:30→17:45)
[2024-08-19] MEDS: VITAMIN D3 (cholecalciferol) 25 MCG PO (08:30)
[2024-08-19] MEDS: LOW STRENGTH ASPIRIN 81 MG PO (08:30)
[2024-08-19 09:06] LABS: COVID-19 Antigen Negative (Negative)
--- NOTE | 2024-08-19 09:45 | W.PN.HOSP.TC ---
Today's Communication/Plan
-
see PN
reasonable to stop telemetry as no clinically significant arrhythmia upon review
Assessment / Plan
Assessment / Plan
89yo F with PMHx of urinary incontinence, HLD, anxiety, hypothyroidism, orthostatic hypotension, ASCVD brought to the hospital with concerns for hypotension, dizziness and poor oral intake. Found NUNU
A/P
#Hypotension, orthostatic
might need to allow certain degree o hypertension to avoid symptoms
Hold Doneprezil - can cause chronitropic incompetency
daily ortho VS
#NUNU with 20lbs weight loss and poor oral intake
#Urinary incontinence
can be 2/2 dementia
encourage oral intake
IVF
serial Cr
Urine studies, check UA
Bladder scans, watch for retention
CT abd/pelvis
hold furosemide
#essential HTN
#ASCVD
#anxiety
#Dementia, Alzheimer
#HLD
#Hypothyroidism
cont home meds except of above
TSH WNL
#Mild leukopenia
monitor with PCP
DVT ppx hep
FUll code
I have spent at least 54min reviewing chart, test results, communication with consultants and direct patient care
Anticipated Discharge: 24 - 48 hours
Subjective/Interval History
-
Date of Service: August 19, 2024
Objective Data
-
Labs:
Laboratory Results
08/19/24
07:13
WBC 4.3 L
Hgb 12.2
Hct 35.9 L
Plt Count 176
Sodium 134 L
Potassium 4.9
Chloride 105
Carbon Dioxide 22
BUN 41 H
Creatinine 1.9 H
Glucose 101 H
Calcium 9.1
Vital Signs:
Vital Signs
Temp Pulse Resp BP Pulse Ox
97.9 F 68 16 147/70 97
08/19/24 07:20 08/19/24 07:20 08/19/24 07:20 08/19/24 07:20 08/19/24 07:20
Review of Systems
-
History Source: Patient
All other systems: Reviewed and negative
Constitutional: Reports No Appetite and Fatigue
Physical Exam
-
General: No Apparent Distress
HEENT: Normocephalic
Respiratory: Clear to Auscultation
Cardiac: Regular Rhythm
GI: Soft, Nontender and Nondistended
Genito-urinary: No Costovertebral Tender
Musculoskeletal: No Clubbing, No Cyanosis and No Edema
Skin: Warm
Neuro: Awake, Alert, Oriented and AO x 3
Psych: Calm and Apparent Dementia
--- NOTE | 2024-08-19 11:02 | CM ---
Alert awake confused patient who lives alone in a 2 story home with an elevator to enter. She is progressively needing more assistance with all activates of daily living.Spoke with son Reyna he said they are setting up 24 hour career development counselor. Requested
PT OT eval to assist with dc plan.
Has had VN in past . No SNF hx
Pharmacy [facility]
PCP Dr Culp
PLAN Will depend on PT OT evals
[2024-08-19 11:05] LABS: Osmolality Urine 537 mOsm/kg (300-900)
[2024-08-19 11:14] LABS: Urine Albumin Trace (Neg - Trace); Urine Bilirubin Negative (Negative); Urine Character Clear (Clear); Urine Color Yellow; Urine Glucose 1+ (Negative); Urine Ketone Trace (Negative); Urine Leukocyte Negative (Negative); Urine Nitrite Negative (Negative); Urine Occult Blood Negative (Negative); Urine Specific Gravity 1.015 (<1.030); Urine Urobilinogen Negative (Neg - 1+)
[2024-08-19 11:35] VITALS: BP 151/81; BP 164/81; BP 166/85; BP 172/81; PULSE 72; PULSE 76; PULSE 87; O2SAT 98
[2024-08-19 12:04] LABS: Body Fluid for Eosinophils No Eosinophils seen
[2024-08-19 12:22] VITALS: BMI 21.9
[2024-08-19] MEDS: MIRALAX 17 GRAMS PO (13:13)
[2024-08-19 14:15] VITALS: BP 120/63; BP 122/57; BP 129/75; PULSE 85; PULSE 96; O2SAT 98
[2024-08-19] MEDS: NSS 1000 IV (14:49)
[2024-08-19 15:37] VITALS: BP 144/61
[2024-08-19 16:16] LABS: Urine Sodium 104 mmol/L (30-90)
[2024-08-19] MEDS: LIPITOR 10 MG PO (17:46)
[2024-08-19] MEDS: NSS IV (21:37)
[2024-08-19 23:52] VITALS: BP 160/81
[2024-08-20] MEDS: HEPARIN 5000 UNITS SC ×3 (00:41→18:18)
[2024-08-20] MEDS: SYNTHROID 50 MCG PO (05:23)
[2024-08-20 06:00] VITALS: BMI 22.0
[2024-08-20 06:24] LABS: % Basophils 0.8 % (0-2); % Immature Granulocytes 0.3 % (0-0.5); % Lymphocytes 19.1 % (20.5-51.1); % Monocytes 8.5 % (1.7-9.3); % Neutrophils 70.3 % (42.2-75.2); Absolute Basophils 0.1 10^3/uL (0-0.2); Absolute Eosinophils 0.1 10^3/uL (0-0.7); Absolute Lymphocytes 1.4 10^3/uL (1.2-3.4); Absolute Monocytes 0.6 10^3/uL (0.1-0.6); Absolute Neutrophils 5.1 10^3/uL (1.4-6.5); Hematocrit 35.8 % (37.0-47.0); Hemoglobin 12.2 g/dL (12.0-16.0); Mean Corp Hgb Conc. 34.1 g/dL (33.0-37.0); Mean Corpuscular Hgb 29.7 pg (27.0-31.0); Mean Corpuscular Volume 87.1 fL (81.0-99.0); Mean Platelet Volume 10.3 fL (7.4-10.4); Nucleated Red Blood Cells % 0 %; Platelet Count 182 10^3/uL (130-400); Red Blood Cell Count 4.11 10^6/uL (4.20-5.40); Red Cell Dist. Width 13.2 % (11.5-14.5); White Blood Cell Count 7.3 10^3/uL (4.8-10.8)
[2024-08-20 06:58] LABS: ALT (SGPT) 24 U/L (0-35); AST (SGOT) 34 U/L (14-36); Albumin 4.3 g/dl (3.5-5.0); Alkaline Phosphatase 61 U/L (38-126); Blood Urea Nitrogen 21 mg/dl (7-17); Calcium 9.5 mg/dl (8.4-10.2); Carbon Dioxide 21 mmol/L (22-30); Chloride 106 mmol/L (98-107); Estimated Creatinine Clearance 32 ml/min; Glucose 112 mg/dl (70-99); Potassium 4.4 mmol/L (3.5-5.1); Sodium 137 mmol/L (135-145); Total Bilirubin 0.4 mg/dl (0.2-1.3); eGFR 48.63
[2024-08-20 07:34] VITALS: BP 171/99
[2024-08-20] MEDS: MIRALAX 17 GRAMS PO (08:21)
[2024-08-20] MEDS: NAMENDA 10 MG PO ×2 (08:21→21:01)
[2024-08-20] MEDS: LOW STRENGTH ASPIRIN 81 MG PO (08:21)
[2024-08-20] MEDS: VITAMIN D3 (cholecalciferol) 25 MCG PO (08:22)
[2024-08-20] MEDS: ZOLOFT 25 MG PO (08:22)
--- NOTE | 2024-08-20 10:07 | W.PN.HOSP.TC ---
Today's Communication/Plan
-
cont IVF
start Omelsartan
BMP repeat at noon - if further improvement - D/C
Assessment / Plan
Assessment / Plan
89yo F with PMHx of urinary incontinence, HLD, anxiety, hypothyroidism, orthostatic hypotension, ASCVD brought to the hospital with concerns for hypotension, dizziness and poor oral intake. Found NUNU that improved on IVF. Advised to start Ensure
supplements and encurage hydration - son verbalized understanding of the instructions. Aricept decreased. Lasix stopped.
A/P
#Hypotension, orthostatic
might need to allow certain degree o hypertension to avoid symptoms
decrease Doneprezil - can cause chronotropic incompetency
daily ortho VS
#NUNU with 20lbs weight loss and poor oral intake
#Urinary incontinence
can be 2/2 dementia
encourage oral intake
IVF
serial Cr
UA neg for infection
Bladder scans, watch for retention
CT abd/pelvis - constipation
hold furosemide
#Constipation
laxatives
#Hepatic cysts
no follow up advised
#DJD
Tylenol
PT/OT
#Delirium 2/2
frequent reorientation
#essential HTN
#ASCVD
#anxiety
#Dementia, Alzheimer
#HLD
#Hypothyroidism
cont home meds except of above
TSH WNL
#Mild leukopenia
monitor with PCP
DVT ppx hep
FUll code
I have spent at least 53min reviewing chart, test results, communication with consultants and direct patient care
Anticipated Discharge: Within 24 hours
Subjective/Interval History
-
Date of Service: August 20, 2024
Objective Data
-
Labs:
Laboratory Results
08/20/24
06:00
WBC 7.3
Hgb 12.2
Hct 35.8 L
Plt Count 182
Sodium 137
Potassium 4.4
Chloride 106
Carbon Dioxide 21 L
BUN 21 H
Creatinine 1.1 H
Glucose 112 H
Calcium 9.5
Total Bilirubin 0.4
AST 34
ALT 24
Alkaline Phosphatase 61
Vital Signs:
Vital Signs
Temp Pulse Resp BP Pulse Ox
97.6 F 93 17 171/99 95
08/20/24 07:34 08/20/24 07:34 08/20/24 07:34 08/20/24 07:34 08/20/24 07:34
I&O
08/19/24 08/20/24 08/21/24
06:59 06:59 06:59
Intake Total 1040 / 1040
Balance 1040 / 1040
Review of Systems
-
History Source: Patient
All other systems: Reviewed and negative
Physical Exam
-
General: No Apparent Distress
HEENT: Normocephalic
Respiratory: Clear to Auscultation
GI: Soft, Nontender and Nondistended
Musculoskeletal: No Clubbing, No Cyanosis and No Edema
Neuro: Awake, Alert, Oriented and AO x 3
Psych: Apparent Dementia
--- NOTE | 2024-08-20 10:31 | WOUNDNOTE ---
R GREAT TOE TIP
--- NOTE | 2024-08-20 10:35 | WOUNDNOTE ---
[facility] RN note: Patient admitted with NUNU, AFTT. Patient lives by herself.
See H&P for complete history.
PMH: HTN, Alzheimer's, depression, anxiety, mitral valve stenosis.
Wound Location and type/assessment: Patient has a R forearm dermal skin tear, pink. Sacrum with small blanchable red area. Perianal red intact skin MASD. Back mild rash. L posterior calf small dry hyperkeratotic lesion. Heels blanchable mild red.
Appetite: fair-good.
Pressure redistribution devices in place: [employer] air bed. Patient moves self in bed.
Plan: Kena care given. R arm skin tear dressing changed. Heels off bed with pillow. Discussed with AILEEN Cole. Will order miconazole powder for back and kena skin.
Care plan to be updated and will follow as needed.
Note to case management of equipment requested for discharge: VN if goes home.
[2024-08-20] MEDS: BENICAR 40 MG PO (12:09)
[2024-08-20] MEDS: NSS IV (13:06)
[2024-08-20 15:00] VITALS: BP 102/56
--- NOTE | 2024-08-20 15:27 | CM ---
Addendum entered by Karen Bonilla 08/20/24 15:35:
Chart reviewed: Per Attending, will hydrate and monitor overnight
Plan: Discharge to home with private duty caregivers when medically stable
Original Note:
Initial assessment completed via phone with her son, Reyna Rodriguez
Pharmacy verified: [facility] @ [address] [place] [address]
Son reported that mother lives alone in [facility]; no steps; Elevator in the home; time study statistician private duty caregivers in the home
Son will transport home
Plan: discharge to home if medically stable today
--- NOTE | 2024-08-20 15:28 | W.PN.UPDATE ---
Addendum entered and electronically signed by Nghia Castillo MD 08/20/24 16:58:
significant symptomatic orthostasis - will have to allow hypertension to avoid dizziness and falls - stop Benicar
Original Note:
Update Note
Progress Note Update
developed symptomatic hypotensio after restarting Benicar -will decrease dose to minimal as patient was hypertensive in AM and needs BP control
WIll hydrate and monitor overnight
[2024-08-20 15:35] VITALS: BP 64/48; BP 79/48; BP 94/50; PULSE 97; O2SAT 96
[2024-08-20 15:36] LABS: Blood Urea Nitrogen 19 mg/dl (7-17); Calcium 9.5 mg/dl (8.4-10.2); Carbon Dioxide 22 mmol/L (22-30); Chloride 104 mmol/L (98-107); Estimated Creatinine Clearance 36 ml/min; Glucose 104 mg/dl (70-99); Potassium 4.5 mmol/L (3.5-5.1); Sodium 136 mmol/L (135-145); eGFR 54.53
[2024-08-20] MEDS: NSS 250 IV (15:47)
[2024-08-20] MEDS: NSS 1000 IV (16:31)
[2024-08-20] MEDS: LIPITOR 10 MG PO (18:19)
[2024-08-20 19:12] VITALS: BP 116/59
[2024-08-20 19:13] VITALS: BP 102/56; BP 116/59; BP 88/51; PULSE 109; PULSE 81; PULSE 93
[2024-08-20] MEDS: DESENEX/MITRAZOL/ZEASORB 1 APPLIC TOPICAL (21:04)
[2024-08-21] MEDS: HEPARIN 5000 UNITS SC ×3 (01:07→17:38)
[2024-08-21] MEDS: SYNTHROID 50 MCG PO (06:20)
[2024-08-21 07:14] VITALS: BP 114/55
[2024-08-21 07:44] LABS: Blood Urea Nitrogen 23 mg/dl (7-17); Calcium 9.1 mg/dl (8.4-10.2); Carbon Dioxide 24 mmol/L (22-30); Chloride 106 mmol/L (98-107); Estimated Creatinine Clearance 25 ml/min; Glucose 97 mg/dl (70-99); Potassium 4.9 mmol/L (3.5-5.1); Sodium 136 mmol/L (135-145); eGFR 36.41
[2024-08-21 07:45] LABS: Hematocrit 36.2 % (37.0-47.0); Mean Corp Hgb Conc. 33.1 g/dL (33.0-37.0); Mean Corpuscular Volume 90.5 fL (81.0-99.0); Mean Platelet Volume 11.1 fL (7.4-10.4); Platelet Count 178 10^3/uL (130-400); Red Cell Dist. Width 13.3 % (11.5-14.5); White Blood Cell Count 5.6 10^3/uL (4.8-10.8)
--- NOTE | 2024-08-21 08:06 | W.PN.HOSP.TC ---
Today's Communication/Plan
-
see bold
Assessment / Plan
Assessment / Plan
89yo F with PMHx of urinary incontinence, HLD, anxiety, hypothyroidism, orthostatic hypotension, ASCVD brought to the hospital with concerns for hypotension, dizziness and poor oral intake. Found NUNU that improved on IVF. Advised to start Ensure
supplements and encurage hydration - son verbalized understanding of the instructions. Aricept decreased. Lasix stopped.
Gen: NAD, Awake and alert
Eyes: EOMI, PERRLA, no scleral icterus.
Neck: supple.
CV: RRR, +S1/S2, no m/r/g.
Resp: CTAB, no rales, wheezes, or rhonchi.
Abd: +BS, soft, NT, ND
Skin: No rashes.
Neuro: CN 2-12 intact, non-focal.
Psych: Normal mood and affect.
CT A/P: Coronary artery calcifications are present. Please correlate with symptoms of and risk factors for coronary artery disease, with further workup as clinically appropriate. Aortic valvular calcifications, which appear moderate. Please
correlate with any clinical signs or symptoms of significant aortic stenosis. Several well-defined low-density hepatic lesions, which very likely represent hepatic cysts. Moderate distention of the rectum with stool and air, with no findings of
stercoral colitis. No evidence for bowel obstruction or free intraperitoneal air. Bony degenerative changes as described.
Orthostatic hypotension:
-Will need to allow for elevated blood pressures when laying or sitting to prevent significant, symptomatic hypotension with standing
-Benicar stopped
NUNU:
-with 20lbs weight loss and poor oral intake
-CT A/P notable for constipation, cont Miralax
-Urinary incontinence
-likely secondary to dementia
-encourage oral intake
-cont IVF with Cr bump to 1.4
Other problems:
Hepatic cysts
DJD
Delirium due to sundowning, underlying Alzheimer's dementia: Continue Namenda/Aricept
Essential HTN: off antihypertensives with NUNU and orthostatic hypotension
CAD: Cont ASA/statin
Anxiety: cont Zoloft
Alzheimer's Demenia
HLD: cont statin
Hypothyroidism: cont Levosyl
Mild leukopenia
FULL/heparin
Anticipated Discharge: Within 24 hours
Subjective/Interval History
-
Date of Service: August 21, 2024
No new complaints.
Objective Data
-
Labs:
Laboratory Results
08/21/24
06:17
WBC 5.6
Hgb 12.0
Hct 36.2 L
Plt Count 178
Sodium 136
Potassium 4.9
Chloride 106
Carbon Dioxide 24
BUN 23 H
Creatinine 1.4 H
Glucose 97
Calcium 9.1
Vital Signs:
Vital Signs
Temp Pulse Resp BP Pulse Ox
98 F 81 16 116/59 96
08/20/24 19:12 08/20/24 19:12 08/20/24 19:12 08/20/24 19:12 08/20/24 19:12
I&O
08/20/24 08/21/24 08/22/24
06:59 06:59 06:59
Intake Total 1040 / 1040 660 / 660
Balance 1040 / 1040 660 / 660
[2024-08-21] MEDS: DESENEX/MITRAZOL/ZEASORB 1 APPLIC TOPICAL ×2 (09:43→20:31)
[2024-08-21] MEDS: VITAMIN D3 (cholecalciferol) 25 MCG PO (09:43)
[2024-08-21] MEDS: LOW STRENGTH ASPIRIN 81 MG PO (09:43)
[2024-08-21] MEDS: MIRALAX 17 GRAMS PO (09:43)
[2024-08-21] MEDS: ZOLOFT 25 MG PO (09:43)
[2024-08-21] MEDS: NAMENDA 10 MG PO ×2 (09:46→20:31)
[2024-08-21 11:09] VITALS: BP 113/59; BP 119/70; BP 91/53; PULSE 102; PULSE 71; PULSE 89
[2024-08-21] MEDS: NSS 1000 IV (12:24)
[2024-08-21 14:43] VITALS: BP 108/55
[2024-08-21 16:25] VITALS: BP 125/57
[2024-08-21] MEDS: LIPITOR 10 MG PO (17:38)
[2024-08-21] MEDS: MELATONIN 3 MG PO (21:47)
[2024-08-21 23:58] VITALS: BP 110/58
[2024-08-22] MEDS: HEPARIN 5000 UNITS SC ×2 (01:36→09:14)
[2024-08-22] MEDS: NSS 1000 IV (01:36)
[2024-08-22] MEDS: SYNTHROID 50 MCG PO (06:28)
[2024-08-22 06:57] LABS: Blood Urea Nitrogen 23 mg/dl (7-17); Calcium 8.5 mg/dl (8.4-10.2); Carbon Dioxide 24 mmol/L (22-30); Chloride 108 mmol/L (98-107); Estimated Creatinine Clearance 36 ml/min; Glucose 102 mg/dl (70-99); Potassium 4.6 mmol/L (3.5-5.1); Sodium 137 mmol/L (135-145); eGFR 54.53
[2024-08-22 07:07] LABS: Hematocrit 31.9 % (37.0-47.0); Hemoglobin 10.5 g/dL (12.0-16.0); Mean Corp Hgb Conc. 32.9 g/dL (33.0-37.0); Mean Corpuscular Hgb 29.6 pg (27.0-31.0); Mean Corpuscular Volume 89.9 fL (81.0-99.0); Mean Platelet Volume 10.2 fL (7.4-10.4); Platelet Count 132 10^3/uL (130-400); Red Blood Cell Count 3.55 10^6/uL (4.20-5.40); Red Cell Dist. Width 13.5 % (11.5-14.5); White Blood Cell Count 4.3 10^3/uL (4.8-10.8)
--- NOTE | 2024-08-22 08:40 | W.PN.HOSP.TC ---
Addendum entered and electronically signed by Sinan Childers MD 08/23/24 12:56:
moderate protein calorie malnutrition
Addendum entered and electronically signed by Sinan Childers MD 08/22/24 11:03:
Total time spent on d/c = 31 min. This included today's physical exam, progress note, review of laboratory and diagnostic data, preparation of discharge documents and prescriptions, and discussions about the pt's hospital course and discharge plan
with the patient and other registered medical transcriptionist involved in the patient's care.
Original Note:
Today's Communication/Plan
-
d/c
Assessment / Plan
Assessment / Plan
89yo F with PMHx of urinary incontinence, HLD, anxiety, hypothyroidism, orthostatic hypotension, ASCVD brought to the hospital with concerns for hypotension, dizziness and poor oral intake. Found NUNU that improved on IVF. Advised to start Ensure
supplements and encurage hydration - son verbalized understanding of the instructions. Aricept decreased. Lasix stopped.
Gen: NAD, Awake and alert
Eyes: EOMI, PERRLA, no scleral icterus.
Neck: supple.
CV: remains RRR, +S1/S2, no m/r/g.
Resp: remains CTAB, no rales, wheezes, or rhonchi.
Abd: +BS, soft, NT, ND
Skin: No rashes.
Neuro: remains CN 2-12 intact, non-focal.
Psych: Normal mood and affect.
CT A/P: Coronary artery calcifications are present. Please correlate with symptoms of and risk factors for coronary artery disease, with further workup as clinically appropriate. Aortic valvular calcifications, which appear moderate. Please
correlate with any clinical signs or symptoms of significant aortic stenosis. Several well-defined low-density hepatic lesions, which very likely represent hepatic cysts. Moderate distention of the rectum with stool and air, with no findings of
stercoral colitis. No evidence for bowel obstruction or free intraperitoneal air. Bony degenerative changes as described.
Orthostatic hypotension:
-Will need to allow for elevated blood pressures when laying or sitting to prevent significant, symptomatic hypotension with standing
-Benicar stopped
-will start Midodrine if pt symptomatic with standing
NUNU:
-with 20lbs weight loss and poor oral intake
-CT A/P notable for constipation, cont Miralax
-Urinary incontinence
-likely secondary to dementia
-encourage oral intake
-NUNU now resolved with IVFs
Other problems:
Hepatic cysts
DJD
Delirium due to sundowning, underlying Alzheimer's dementia: Continue Namenda/Aricept
Essential HTN: off antihypertensives with NUNU and orthostatic hypotension
CAD: Cont ASA/statin
Anxiety: cont Zoloft
Alzheimer's Demenia
HLD: cont statin
Hypothyroidism: cont Levoxyl
Mild leukopenia
FULL/heparin
Medically cleared for discharge. Case management aware.
Anticipated Discharge: Today
Subjective/Interval History
-
Date of Service: August 22, 2024
Objective Data
-
Labs:
Laboratory Results
08/22/24
06:13
WBC 4.3 L
Hgb 10.5 L
Hct 31.9 L
Plt Count 132 D
Sodium 137
Potassium 4.6
Chloride 108 H
Carbon Dioxide 24
BUN 23 H
Creatinine 1.0
Glucose 102 H
Calcium 8.5
Vital Signs:
Vital Signs
Temp Pulse Resp BP Pulse Ox
97.9 F 73 18 110/58 98
08/21/24 23:58 08/21/24 23:58 08/21/24 23:58 08/21/24 23:58 08/21/24 23:58
I&O
08/21/24 08/22/24 08/23/24
06:59 06:59 06:59
Intake Total 660 / 660 1650 / 1650
Balance / 1649 / 1649
[2024-08-22 09:08] VITALS: BP 135/78
[2024-08-22] MEDS: NAMENDA 10 MG PO (09:13)
[2024-08-22] MEDS: LOW STRENGTH ASPIRIN 81 MG PO (09:13)
[2024-08-22] MEDS: VITAMIN D3 (cholecalciferol) 25 MCG PO (09:13)
[2024-08-22] MEDS: MIRALAX 17 GRAMS PO (09:13)
[2024-08-22] MEDS: ZOLOFT 25 MG PO (09:13)
[2024-08-22] MEDS: DESENEX/MITRAZOL/ZEASORB 1 APPLIC TOPICAL (09:14)
--- NOTE | 2024-08-22 11:48 | CM ---
Addendum entered by RONN Alvarez 08/22/24 12:21:
IMM signed and on chart.
Original Note:
Spoke with attending who stated that patient is medically stable for discharge. Patient updated. Signed IMM. Called patient's son and he was agreeable. He confirmed that he has [address] He stated that he will be in to spanish moss picker patient in
an hour. c.o.d. audit clerk and RN updated.
Plan: Case management will continue to follow and assist with discharge planning. Home with 24 hr care.
[2024-08-22 12:32] VITALS: BP 113/46
--- NOTE | 2024-08-22 16:36 | W.DCSUMMARY ---
Discharge Summary
Discharge Data
Date of Admission: 08/18/24
Date of Discharge: 08/22/24
-
Pending Results: No
Hospital Course
Primary diagnoses:
Acute kidney injury
Orthostatic hypotension
Secondary diagnoses:
Hepatic cysts
Degenerative joint disease
Delirium due to sundowning
Alzheimer's dementia
Essential hypertension
Coronary disease
Anxiety
Hyperlipidemia
Hypothyroidism
Mild leukopenia
Consults:
None
Imaging:
CT A/P: Coronary artery calcifications are present. Please correlate with symptoms of and risk factors for coronary artery disease, with further workup as clinically appropriate. Aortic valvular calcifications, which appear moderate. Please
correlate with any clinical signs or symptoms of significant aortic stenosis. Several well-defined low-density hepatic lesions, which very likely represent hepatic cysts. Moderate distention of the rectum with stool and air, with no findings of
stercoral colitis. No evidence for bowel obstruction or free intraperitoneal air. Bony degenerative changes as described.
Hospital course: 89-year-old female presented with a chief complaint of hypotension as outlined in the H&P done on admission. The patient had a period of orthostatic hypotension with systolic blood pressure in the 60s. She also had a recent 20
pound weight loss with decreased appetite. Patient was in acute kidney injury on admission with a creatinine of 2.5 from baseline of 0.8. The patient's home Lasix and Benicar were held. The patient was given IV fluids and her creatinine improved
to 1.0. Her orthostatic hypotension did improve but did not resolve. The patient was discharged in medically stable condition.
Discharge Plan
-
Patient Disposition: Home (Routine Discharge)
Discharge Diagnosis/Procedures: Acute kidney injury, orthostatic hypotension
Condition: Fair
Diet: As tolerated
Additional Diets: Add Ensure supplement two times a day
Activity: As tolerated
Driving Restrictions: As prior to admission
Bathing Restrictions: None
Activity Restrictions/Additional Instructions:
Wound Care Instructions
R forearm skin tear-clean with saline, Vaseline gauze, gauze, ABD pad, secure with Kerlix. Change daily and prn loosened dressing. (2 steri strips applied 08/20/24, remove in 2 weeks if they haven't fallen off prior).
Miconazole powder to perianal skin, back rash bid.
Moisture lotion to dry skin daily.
Elevate heels off bed with pillow.
Pressure redistributing chair cushion.
Follow up at wound care center if needed call for an appointment.
Referrals:
Jacek Culp, [Family Provider] - in less than 1 week (Consider age appropriate cancer screening, EGD due to iron deficiency)
Prescriptions:
New
polyethylene glycol 3350 [Miralax] 17 gram powder in packet
17 g PO DAILY Qty: 30 0RF
Rx Instructions:
Hold if diarrhea or more then 2 bowel movement per day
donepezil 10 mg Tablet
10 mg PO HS Qty: 30 0RF
Continued
therapeutic multivitamin Tablet
1 tab PO DAILY
lutein 6 mg Capsule
6 mg PO DAILY
levothyroxine 50 mcg Tablet
50 mcg PO DAILY
simvastatin 20 mg Tablet
20 mg PO QPM
sertraline 25 mg Tablet
25 mg PO DAILY
aspirin 81 mg Tablet,Chewable
81 mg PO DAILY
cholecalciferol (vitamin D3) [Vitamin D3] 25 mcg (1,000 unit) Tablet
25 mcg PO DAILY
memantine 28 mg Capsule,Sprinkle,Er 24hr
28 mg PO DAILY
Gemtesa 75 mg Tablet
75 mg PO DAILY
lactulose 10 gram/15 mL Solution
20 g PO DAILYPRN PRN (Reason: constipation)
Discontinued
donepezil 10 mg Tablet
10 mg PO HS
furosemide 20 mg Tablet
20 mg PO DAILY
olmesartan 40 mg Tablet
40 mg PO DAILY
hydralazine 10 mg tablet
10 mg PO TIDPRN PRN (Reason: BP)
Discharge Orders:
Discharge Patient (As Directed); Ordered 08/22/24
Ordered By: Sinan Childers
Discharge Date and Time
Discharge Date/Time: 08/22/24 13:42
Print Language: ALBANIAN
--- NOTE | 2024-08-23 09:45 | PN.CDI ---
CDI
- -
CDI:
Physician Documentation Request
Admit Date: 08/18/24 18:45
Dear Doctor Alvarado,
Patient admitted for NUNU.
08/19 Blankmaker Assessment: 'External medical summary lists wt as 149.4 lbs on 07/21/24-reflects 12% severe wt loss in one month. As per ASPEN/AND guidelines pt meets criteria for moderate protein calorie malnutrition with 12% wt loss in
one month, NFPE finding, and intakes <50% for one month.'
Based on the above information and your assessment, which of the following most accurately represents the patient's nutritional status?
Moderate protein malnutrition
Other
Cascade Criteria ([facility] Hospitalist 2017)
2 or more criteria must be present for either
non severe or severe malnutrition
Note that the criteria differs related to the
presence of an acute or chronic illness
Acute Illness Chronic Illness
Energy Intake Non Severe: <75% for >7 days Non Severe: <75% for >1 month
Severe: <50% for >5 days Severe: <75% for >1 month
Weight Loss Non Severe: 1-2% over 1 week Non Severe: 5% over 1 month
5% over 1 month 7.5% over 3 months
7.5% over 3 months 10% over 6 months
1 year N/A 20% over 1 year
Severe: >2% over 1 week Severe: >5% over 1 month
>5% over 1 month >7.5% over 3 months
>7.5% over 3 months >10% over 6 months
1 year N/A >20% over 1 year
Body Fat Non Severe: Mild Decrease Non Severe: Mild Loss
Severe: Moderate Decrease Severe: Severe Loss
Muscle Mass Non Severe: Mild Decrease Non Severe: Mild Loss
Severe: Moderate Decrease Severe: Severe Loss
Fluid Accumulation Non Severe: Mild Accumulation Non Severe: Mild Accumulation
Severe: Moderate to severe Severe: Moderate to severe
accumulation accumulation
Reduced Will Call Order Clerk Strength Non Severe: N/A Non Severe: N/A
Severe: Measurably reduced Severe: Measurably reduced
Additional criteria that can be used to Determine if Mild or Moderate Malnutrition ([employer]ck Manual 2018)
Mild Moderate Severe
Albumin gm/dl <3.0 gm/dl <2.5 gm/dl <2.0 gm/dl
Pre Albumin mg/dl <15 gm/dl <10 mg/dl <5.0 mg/dl
BMI <18.5 <17 <16
Use of terms such as suspected, likely, concern for, or probable (associated with a specific diagnosis that is being evaluated, monitored, or treated as if it exists) are acceptable and can be coded in the inpatient setting, when documented at the
time of discharge.
Thank you,
Annalise Roman RN, BSN
CDI Specialist
Available via [place] text
Please use your independent medical judgment in providing your response.
== END 2024-08-22 13:42 | disposition home or self-care (01) | DRG 683 ==
LOC: 3 WEST ACU 18:45
PROVIDERS: Internal Medicine; Nurse Practitioner Family; Physician Assistant; ADMITTING PHYSICIAN Hospitalist; ATTENDING PHYSICIAN Internal Medicine; EMERGENCY PHYSICIAN Emergency Medicine; FAMILY PHYSICIAN Family Medicine
DX: N17.9 Acute kidney failure, unspecified (principal); E44.0 Moderate protein-calorie malnutrition; F02.83 Dementia in other diseases classified elsewhere, unspecified severity, with mood disturbance; F02.84 Dementia in other diseases classified elsewhere, unspecified severity, with anxiety; F05 Delirium due to known physiological condition; I67.89 Other cerebrovascular disease; I95.1 Orthostatic hypotension; I10 Essential (primary) hypertension; E78.5 Hyperlipidemia, unspecified; E03.9 Hypothyroidism, unspecified; I65.23 Occlusion and stenosis of bilateral carotid arteries; G30.9 Alzheimer's disease, unspecified; N32.81 Overactive bladder; I27.20 Pulmonary hypertension, unspecified; I08.1 Rheumatic disorders of both mitral and tricuspid valves; R62.7 Adult failure to thrive; R32 Unspecified urinary incontinence; K76.89 Other specified diseases of liver; D72.819 Decreased white blood cell count, unspecified; Z11.52 Encounter for screening for COVID-19; Z68.22 Body mass index [BMI] 22.0-22.9, adult; Z79.890 Hormone replacement therapy; Z79.82 Long term (current) use of aspirin; Z79.899 Other long term (current) drug therapy
CPT/HCPCS: 71046; 74176; 80048; 80053; 81003; 81099; 82570; 83935; 84300; 84443; 85025; 85027; 87502; 87811; 93005; 97116; 97162; 97166; 97530; 99284

== ENCOUNTER → 2024-11-23 12:45 | Outpatient (REF) | payer MEDICARE, SELFPAY | LOC: RCS 12:45 | PROVIDERS: ATTENDING PHYSICIAN Internal Medicine Cardiovascular Disease; FAMILY PHYSICIAN Family Medicine | DX: I34.2 Nonrheumatic mitral (valve) stenosis (principal) | CPT/HCPCS: 93306 ==